=== PATIENT | female | born 1980 | race Caucasian/White ===

== ENCOUNTER 2017-02-20 11:13 | Emergency (ER) | payer MEDICAID ==
[~2017-02-20] VITALS: Ht 154.9 cm; Wt 62.0 kg
[~2017-02-20 11:13] MED LIST: PREN-39 PO
[2017-02-20 11:16] VITALS: Ht 154.9 cm; Wt 62.0 kg
[2017-02-20] MEDS ORDERED: KETOROLAC 30 MG INJ IM STA (11:54)
--- NOTE | 2017-02-20 12:06 | ERD ---
ER Documentation Chief Complaint Date/Time DATE: 02/20/17 TIME: 12:02 Chief Complaint pt bib self with c/o back and neck pain x 3 wks, unk cause HPI This a 36-year-old female who presents to the emergency department today complaining of neck pain for the past couple of days. Patient states that 3 weeks ago she had similar neck pain for 3-4 days but then got better. States she is now worse again. She has not taken any medication. States she does have some sore throat. States she has pain with turning her neck to the right. States it is causing a slight headache. denies any fevers or chills. Denies any cough. Denies any trauma. ROS All systems reviewed and are negative except as per history of present illness. Medications Home Meds Active Scripts Tramadol HCl (Tramadol HCl) 50 Mg Tablet, 50 MG PO Q4 Y for PAIN, #20 TAB Prov:MARK RODNEY-C 02/20/17 Cyclobenzaprine Hcl* (Cyclobenzaprine Hcl*) 10 Mg Tablet, 10 MG PO QHS, #7 TAB Prov:MARK RODNEYC 02/20/17 Naproxen* (Naprosyn*) 500 Mg Tablet, 500 MG PO BID Y for PAIN AND/OR INFLAMMATION, #30 TAB Prov:MARK RODNEYC 02/20/17 Amoxicillin* (Amoxicillin*) 500 Mg Cap, 500 MG PO TID for 10 Days, CAP Prov:MARK RODNEY-C 02/20/17 Reported Medications Vits W-Ca,Fe,Fa(<1MG) ( Vitamins) 1 Tab Tablet, 1 TAB PO DAILY , TAB 12/04/15 Allergies Allergies: Coded Allergies: No Known Allergy (Verified , 12/04/15) PMhx/Soc Hx Alcohol Use: No Hx Substance Use: No Hx Tobacco Use: No Smoking Status: Never smoker Physical Exam Vitals Vital Signs Date Time Temp Pulse Resp B/P Pulse Ox O2 Delivery O2 Flow Rate FiO2 02/20/17 11:16 98.3 67 18 108/55 99 Physical Exam Const: NAD Head: Atraumatic Eyes: Normal Conjunctiva ENT: Ears TMs normal. Nose no drainage. Throat with no erythema and one small area of punctate exudate on left tonsil. Neck: Decreased range of motion secondary to pain. Patient able to touch her chin to her chest. Patient able to turn neck to the left. Unable to turn neck all the way to the right. .~ No meningismus. No midline tenderness. Resp: Clear to auscultation bilaterally Cardio: Regular rate and rhythm, no murmurs Skin: No petechiae or rashes Neur: Awake and alert Psych: Normal Mood and Affect Results 24 hrs Current Medications Medications (Trade) Dose Ordered Sig/Leny Route PRN Reason Start Time Stop Time Status Last Admin Dose Admin Ketorolac Tromethamine (Toradol) 30 mg ONCE STAT IM 02/20/17 11:54 02/20/17 11:55 DC 02/20/17 12:06 Procedures/MDM This a 36-year-old female who presents the emergency department today complaining of neck pain for the past couple of days. Patient did not have any midline tenderness on physical exam and do not feel that she requires imaging at this time. Patient was having pain turning her neck to the right and she did have a significant amount of muscle spasm in her upper trapezius muscle. On physical exam patient also had one small area of punctate exudate on the left tonsil. Patient symptoms at this time most consistent with muscle strain versus muscle spasm versus torticollis however given punctate exudate I will treat the patient with amoxicillin for possible strep pharyngitis as a possible source of torticollis. Patient is afebrile and otherwise well-appearing. She is able to touch her chin to her neck and I have low suspicion for meningitis. There has been no trauma and I have low suspicion for acute fracture dislocation. Low suspicion for retropharyngeal abscess or peritonsillar abscess. Patient was given Toradol here in the emergency department. I will give her a prescription for tramadol, Naprosyn and Flexeril for home as well as amoxicillin. She was instructed in stretching exercises and instructed to apply ice and heat intermittently. At this time the patient is stable for discharge and outpatient management. Patient should follow up with their PCP in the next 1-2 days. They may return to the emergency department sooner for any persistent or worsening of symptoms. Patient understood and agreed with the plan. Departure Diagnosis: Primary Impression: Neck pain Additional Impression: Sore throat Condition: MARK Joyce PA-C Feb 20, 2017 12:06
[2017-02-20] MEDS ORDERED: CYCL-319 PO (12:08)
[2017-02-20] MEDS ORDERED: NAPR-260 PO (12:08)
[2017-02-20] MEDS ORDERED: AMO500 PO (12:08)
[2017-02-20] MEDS ORDERED: TRAM50TA2 PO (12:09)
== END 2017-02-20 12:15 | disposition home or self-care (01) ==
LOC: FTE 11:13
DX: M54.2 Cervicalgia (principal); J02.9 Acute pharyngitis, unspecified
CPT/HCPCS: 96372; J1885; Z7502